=== PATIENT | female | born 1970 | race Caucasian/White ===

== ENCOUNTER 2017-06-10 08:49 | Emergency (ER) | payer OTHER ==
[~2017-06-10] VITALS: Ht 167.6 cm; Wt 99.2 kg
[2017-06-10 10:22] LABS: CHLORIDE 106 mEq/L (99-109); POTASSIUM 3.8 mEq/L (3.7-5.4); SODIUM 142 mEq/L (136-147)
[2017-06-10 10:24] LABS: GLUCOSE 97 mg/dL (70-99)
[2017-06-10 10:25] LABS: ANION GAP 12 MEQ/L (2-14)
[2017-06-10 10:27] LABS: SERUM ETHYL ALCOHOL 155 mg/dL
[2017-06-10 10:28] LABS: GFR ESTIMATE (CALCULATED) > 59 mL/min/
[2017-06-10 10:29] LABS: UREA NITROGEN (BUN) 8 mg/dL (9-23)
[2017-06-10 14:46] VITALS: BP 142/87
== END 2017-06-10 15:14 | disposition home or self-care (01) ==
LOC: EME 08:49
PROVIDERS: Emergency Medicine
DX: F10.129 Alcohol abuse with intoxication, unspecified (principal); Y90.6 Blood alcohol level of 120-199 mg/100 ml; J45.909 Unspecified asthma, uncomplicated; M32.9 Systemic lupus erythematosus, unspecified; F17.200 Nicotine dependence, unspecified, uncomplicated
CPT/HCPCS: 80048; 99281; 99285; G0480

== ENCOUNTER 2017-07-19 15:07 | Inpatient (IN) | payer OTHER ==
[~2017-07-19] VITALS: Ht 162.6 cm; Wt 99.8 kg
[2017-07-19 15:46] LABS: HEMATOCRIT 43.7 % (36.0-46.0); MCHC 35.2 G/DL (30.0-36.0); MCV 93.6 FL (83-99); MEAN PLAT.VOLUME 10.5 uM^3 (9.5-12.4); PLATELET COUNT 154 K/uL (156-360); RBC DIS.WIDTH-CV 12.6 % (11.8-14.6); RBC DIS.WIDTH-SD 43.7 % (39-53); RED BLOOD COUNT 4.67 M/uL (3.80-5.20); WHITE BLOOD COUNT 5.4 K/uL (4.1-10.2)
[2017-07-19 15:53] LABS: ADD MIUA? YES; BILIRUBIN SMALL; BLOOD SMALL; COLOR AMBER ((YELLOW)); GLUCOSE (STRIP) 50; KETONES NEGATIVE; LEUKOCYTES NEGATIVE; NITRITE NEGATIVE; PROTEIN (STRIP) 100; SPECIFIC GRAVITY 1.029 (1.000-1.030)
[2017-07-19 15:55] LABS: CHLORIDE 107 mEq/L (99-109); POTASSIUM 3.7 mEq/L (3.7-5.4); SODIUM 138 mEq/L (136-147)
[2017-07-19 15:57] LABS: GLUCOSE 140 mg/dL (70-99)
[2017-07-19 15:58] LABS: ANION GAP 9 MEQ/L (2-14)
[2017-07-19 15:59] LABS: TOTAL BILIRUBIN 0.7 mg/dL (0.0-1.0)
[2017-07-19 16:00] LABS: ALKALINE PHOSPHATASE 97 IU/L (3-129)
[2017-07-19 16:01] LABS: BACTERIA RARE /HPF; EPITHELIAL CELLS 1+ /HPF; MUCUS 1+ /LPF
[2017-07-19 16:01] LABS: GFR ESTIMATE (CALCULATED) > 59 mL/min/
[2017-07-19 16:02] LABS: UREA NITROGEN (BUN) 14 mg/dL (9-23)
[2017-07-19 16:04] LABS: CREATINE KINASE 145 IU/L (1-294)
[2017-07-19 16:07] LABS: TROP-I INTERPRETATION NEGATIVE; TROPONIN-I 0.02 ng/mL (0.0-0.30)
[2017-07-19 16:51] LABS: INTER. NORMALIZED RATIO 1.1
[2017-07-19 17:03] LABS: SERUM ETHYL ALCOHOL < 10 mg/dL
[2017-07-19 17:06] LABS: LIPASE 26 U/L (1.0-51.0)
[2017-07-19] MEDS ORDERED: ENDOCET 5-3251 EACH PO (19:13)
[2017-07-19] MEDS ORDERED: VYVANSE30 MG PO (19:14)
[2017-07-19] MEDS ORDERED: AMPHETAMINE SAL30 MG PO (19:15)
[2017-07-19] MEDS ORDERED: GABAPENTIN300 MG PO (19:15)
[2017-07-19] MEDS ORDERED: DOXEPIN HCL25 MG PO (19:16)
[2017-07-19] MEDS ORDERED: FLUOXETINE HCL40 MG PO (19:17)
[2017-07-19] MEDS ORDERED: BUPROPION XL300 MG PO (19:18)
[2017-07-19] MEDS ORDERED: LATUDA20 MG PO (19:20)
[2017-07-19] MEDS ORDERED: VENTOLIN HFA18 GM IH (19:21)
[2017-07-19] MEDS ORDERED: HYDROXYZINE PAM50 MG PO (19:22)
[2017-07-19] MEDS ORDERED: PRAZOSIN HCL1 MG PO (19:23)
[2017-07-19 20:24] LABS: QUANTITATIVE HCG < 4.0 MIU/ML
[2017-07-19 20:36] LABS: AMPHETAMINE NEGATIVE (500 ng/mL); BARBITURATES NEGATIVE (200 ng/mL); BENZODIAZEPINES PRESUMPTIVE POSITIVE (150 ng/mL); COCAINE PRESUMPTIVE POSITIVE (150 ng/mL); INTERNAL CONTROLS VALID? YES; METHADONE NEGATIVE (200 ng/mL); METHAMPHETAMINE NEGATIVE (500 ng/mL); OPIATES (MORPHINE) NEGATIVE (100 ng/mL); OXYCODONE NEGATIVE (100 ng/mL); PHENCYCLIDINE NEGATIVE (25 ng/mL); PROPOXYPHENE NEGATIVE (300 ng/mL); THC CANNABINOIDS NEGATIVE (50 ng/mL); TRICYCLIC ANTIDEPRESSANTS NEGATIVE (300 ng/mL)
[2017-07-19 20:37] LABS: ADD MEDTOX COMMENT Y
[2017-07-19 21:00] LABS: BENZODIAZEPINES QUANT VALUE 0 NG/ML; BENZODIAZEPINES, URINE SCREEN Negative (200 ng/mL)
[2017-07-19 22:15] LABS: TROP-I INTERPRETATION NEGATIVE; TROPONIN-I < 0.01 ng/mL (0.0-0.30)
[2017-07-20 01:36] VITALS: BP 114/64
[2017-07-20 05:09] VITALS: BP 127/67
[2017-07-20 05:36] LABS: HEMATOCRIT 41.4 % (36.0-46.0); MCH 32.2 PG (29.0-34.0); MCHC 33.3 G/DL (30.0-36.0); MCV 96.7 FL (83-99); MEAN PLAT.VOLUME 10.7 uM^3 (9.5-12.4); PLATELET COUNT 130 K/uL (156-360); RBC DIS.WIDTH-CV 13.2 % (11.8-14.6); RBC DIS.WIDTH-SD 46.7 % (39-53); RED BLOOD COUNT 4.28 M/uL (3.80-5.20); WHITE BLOOD COUNT 4.5 K/uL (4.1-10.2)
[2017-07-20 06:23] LABS: ALKALINE PHOSPHATASE 66 IU/L (3-129); ANION GAP ND MEQ/L (2-14); CHLORIDE 112 MEQ/L (99-109); POTASSIUM 3.8 MEQ/L (3.7-5.4); SAMPLE HEMOLYSIS CHECK 0; SAMPLE ICTERIC CHECK 0; SAMPLE LIPEMIA CHECK 0; SODIUM 143 MEQ/L (136-147); TOTAL BILIRUBIN 0.5 MG/DL (0.0-1.0); UREA NITROGEN (BUN) 9 mg/dL (9-23)
[2017-07-20 06:58] LABS: GLUCOSE 91 mg/dL (70-99)
[2017-07-20 07:53] LABS: GFR ESTIMATE (CALCULATED) > 59 mL/min/
[2017-07-20 08:00] VITALS: BP 98/68
[2017-07-20 10:54] LABS: SERUM ETHYL ALCOHOL < 10 mg/dL
[2017-07-20 11:42] VITALS: BP 120/77
[2017-07-20 11:50] LABS: HBSG INDEX 0.14
[2017-07-20 11:52] LABS: ANTI-HEPATITIS A VIRUS (IGM) Nonreactive
[2017-07-20 11:53] LABS: ANTI-HEPATITIS B CORE (IGM) Nonreactive; HBC IgM INDEX 0.09; HPCA INDEX 14.12
[2017-07-20 15:43] VITALS: BP 118/86
[2017-07-20 23:34] VITALS: BP 117/83
[2017-07-21 04:34] VITALS: BP 103/56
[2017-07-21 05:03] LABS: CHLORIDE 106 mEq/L (99-109); SODIUM 136 mEq/L (136-147)
[2017-07-21 05:05] LABS: GLUCOSE 99 mg/dL (70-99)
[2017-07-21 05:07] LABS: ANION GAP 5 MEQ/L (2-14)
[2017-07-21 05:08] LABS: POTASSIUM 4.6 mEq/L (3.7-5.4); TOTAL BILIRUBIN 0.3 mg/dL (0.0-1.0)
[2017-07-21 05:09] LABS: ALKALINE PHOSPHATASE 82 IU/L (3-129); GFR ESTIMATE (CALCULATED) > 59 mL/min/
[2017-07-21 05:10] LABS: UREA NITROGEN (BUN) 10 mg/dL (9-23)
[2017-07-21 05:11] LABS: DIRECT BILIRUBIN 0.2 mg/dL (0.0-0.3)
[2017-07-21 08:00] VITALS: BP 116/78
[2017-07-21 11:06] VITALS: BP 122/65
[2017-07-21 11:35] LABS: HIV INDEX 0.13; HIV-1/2 AB/AG COMBO Nonreactive
[2017-07-21 15:37] VITALS: BP 119/62
[2017-07-21 19:40] VITALS: BP 148/79
[2017-07-22 00:04] VITALS: BP 135/82
[2017-07-22 01:54] VITALS: BP 123/63
[2017-07-22 07:20] LABS: ALKALINE PHOSPHATASE 81 IU/L (3-129); ANION GAP 5 MEQ/L (2-14); CHLORIDE 102 MEQ/L (99-109); GFR ESTIMATE (CALCULATED) > 59 mL/min/; GLUCOSE 91 mg/dL (70-99); POTASSIUM 4.3 MEQ/L (3.7-5.4); SAMPLE HEMOLYSIS CHECK 0; SAMPLE ICTERIC CHECK 0; SAMPLE LIPEMIA CHECK 0; SODIUM 135 MEQ/L (136-147); UREA NITROGEN (BUN) 8 mg/dL (9-23)
[2017-07-22 07:26] VITALS: BP 116/66
[2017-07-22 07:28] LABS: TOTAL BILIRUBIN 0.3 MG/DL (0.0-1.0)
[2017-07-22] MEDS ORDERED: CIPRO500 MG PO (10:38)
[2017-07-24 12:08] LABS: HCV RNA (LOG IU/mL) 3.75 (<1.18)
== END 2017-07-22 11:45 | disposition home or self-care (01) | DRG 312 ==
LOC: EME 15:07 → 5SOUTH 19:05 → EDOF 19:05 → 4EAST 19:05 → ENRESERV 19:05 → 4EAST 07-20 01:24 → ENRESERV 07-22 00:03 → 5SOUTH 07-22 01:40
PROVIDERS: Hospitalist; Internal Medicine; Internal Medicine Gastroenterology; Physician Assistant Medical
DX: R55 Syncope and collapse (principal); N39.0 Urinary tract infection, site not specified; E86.0 Dehydration; R16.0 Hepatomegaly, not elsewhere classified; F14.10 Cocaine abuse, uncomplicated; F19.10 Other psychoactive substance abuse, uncomplicated; B19.20 Unspecified viral hepatitis C without hepatic coma; F41.9 Anxiety disorder, unspecified; F32.9 Major depressive disorder, single episode, unspecified; F10.21 Alcohol dependence, in remission; M17.10 Unilateral primary osteoarthritis, unspecified knee; G89.4 Chronic pain syndrome; M79.7 Fibromyalgia; I51.7 Cardiomegaly; E66.9 Obesity, unspecified; J45.909 Unspecified asthma, uncomplicated; F17.200 Nicotine dependence, unspecified, uncomplicated; W18.30XA Fall on same level, unspecified, initial encounter; Y93.01 Activity, walking, marching and hiking; Z81.8 Family history of other mental and behavioral disorders; Z68.39 Body mass index [BMI] 39.0-39.9, adult; Y92.410 Unspecified street and highway as the place of occurrence of the external cause; Z91.19 Patient's noncompliance with other medical treatment and regimen; R94.31 Abnormal electrocardiogram [ECG] [EKG]
CPT/HCPCS: 70450; 71010; 73564; 76705; 80048; 80053; 80074; 80076; 81003; 82140; 82550; 83690; 84484; 84702; 84999; 85027; 85610; 85651; 86703; 87077; 87086; 87186; 87522 90; 87902 90; 90686; 93005; 93306; 99202; 99281; 99285; G0480; J1650; J2405; J7030; S0028

== ENCOUNTER 2017-08-13 21:37 | Observation (INO) | payer OTHER ==
[~2017-08-13] VITALS: Ht 165.1 cm; Wt 93.3 kg
[~2017-08-13 21:37] MED LIST: AMPHETAMINE SAL30 MG PO; BUPROPION XL300 MG PO; CIPRO500 MG PO; DOXEPIN HCL25 MG PO; ENDOCET 5-3251 EACH PO; FLUOXETINE HCL40 MG PO; GABAPENTIN300 MG PO; HYDROXYZINE PAM50 MG PO; LATUDA20 MG PO; PRAZOSIN HCL1 MG PO; VENTOLIN HFA18 GM IH; VYVANSE30 MG PO
[2017-08-13 22:15] LABS: HEMATOCRIT 46.8 % (36.0-46.0); HEMOGLOBIN 16.1 G/DL (11.9-15.5); MCH 32.4 PG (29.0-34.0); MCHC 34.4 G/DL (30.0-36.0); MCV 94.2 FL (83-99); PLATELET COUNT 259 K/uL (156-360); RBC DIS.WIDTH-SD 44.4 % (39-53); RED BLOOD COUNT 4.97 M/uL (3.80-5.20); WHITE BLOOD COUNT 7.6 K/uL (4.1-10.2)
[2017-08-13 22:22] LABS: CHLORIDE 105 mEq/L (99-109); POTASSIUM 3.6 mEq/L (3.7-5.4); SODIUM 138 mEq/L (136-147)
[2017-08-13 22:25] LABS: GLUCOSE 110 mg/dL (70-99); TOTAL PROTEIN 7.9 g/dL (6.4-8.3)
[2017-08-13 22:27] LABS: TOTAL BILIRUBIN 0.3 mg/dL (0.0-1.0)
[2017-08-13 22:28] LABS: ALKALINE PHOSPHATASE 72 IU/L (3-129); CREATININE 0.8 mg/dL (0.6-1.3); GFR ESTIMATE (CALCULATED) > 59 mL/min/; SERUM ETHYL ALCOHOL 145 mg/dL
[2017-08-13 22:30] LABS: AST (GOT) 42 IU/L (2-34); UREA NITROGEN (BUN) 8 mg/dL (9-23)
[2017-08-13 22:31] LABS: ALT (GPT) 58 IU/L (3-49)
[2017-08-14] VITALS (7 sets, daily range): BP systolic 109–148; BP diastolic 62–89
[2017-08-14] MEDS ORDERED: CLARITIN10 M3 PO (08:50)
[2017-08-14 10:49] LABS: HEPATITIS B SURFACE ANTIGEN Nonreactive
[2017-08-14 10:50] LABS: HEPATITIS B SURFACE ANTIBODY Nonreactive
[2017-08-14 10:51] LABS: ANTI-HEPATITIS A VIRUS (IGM) Nonreactive
[2017-08-14 10:52] LABS: ANTI-HEPATITIS B CORE (IGM) Nonreactive
[2017-08-14 11:23] LABS: HEPATITIS C ANTIBODY REACTIVE
[2017-08-14 14:04] LABS: ALBUMIN 3.9 G/DL (3.2-4.8); ALKALINE PHOSPHATASE 64 IU/L (3-129); ALT (GPT) 48 IU/L (3-49); AST (GOT) 35 IU/L (2-34); DIRECT BILIRUBIN 0.1 mg/dL (0.0-0.3); TOTAL BILIRUBIN 0.4 MG/DL (0.0-1.0); TOTAL PROTEIN 6.7 G/DL (6.4-8.3)
[2017-08-15 00:40] VITALS: BP 121/60
[2017-08-15 03:04] VITALS: BP 143/63
[2017-08-15 06:25] LABS: CHLORIDE 105 MEQ/L (99-109); CREATININE 0.6 MG/DL (0.6-1.3); GFR ESTIMATE (CALCULATED) > 59 mL/min/; SODIUM 138 MEQ/L (136-147); UREA NITROGEN (BUN) 10 mg/dL (9-23)
[2017-08-15 06:26] LABS: GLUCOSE 77 mg/dL (70-99); POTASSIUM 4.4 MEQ/L (3.7-5.4)
[2017-08-15 06:28] LABS: HEMATOCRIT 40.8 % (36.0-46.0); MCH 31.7 PG (29.0-34.0); MCHC 32.8 G/DL (30.0-36.0); MCV 96.5 FL (83-99); RBC DIS.WIDTH-CV 12.7 % (11.8-14.6); RBC DIS.WIDTH-SD 45.1 % (39-53); RED BLOOD COUNT 4.23 M/uL (3.80-5.20)
[2017-08-15 06:31] LABS: HEMOGLOBIN 13.4 G/DL (11.9-15.5)
[2017-08-15 07:11] LABS: PLAT.SUFFICIENCY ADEQUATE
[2017-08-15 07:12] LABS: PLATELET COUNT 171 K/uL (156-360)
[2017-08-15 07:58] VITALS: BP 123/75
[2017-08-15] MEDS ORDERED: NICOTINE PATCH1 EAC1 TD (09:52)
== END 2017-08-15 10:55 | disposition home or self-care (01) ==
LOC: EME 21:37 → EDOF 08-14 02:30 → 5EAST 08-14 02:30 → ENRESERV 08-14 02:33 → 5EAST 08-14 03:52 → ENPENDDIS 08-15 → 5EAST 08-15 10:55
PROVIDERS: Emergency Medicine; Hospitalist
DX: T40.1X1A Poisoning by heroin, accidental (unintentional), initial encounter (principal); R74.0 Nonspecific elevation of levels of transaminase and lactic acid dehydrogenase [LDH]; S00.83XA Contusion of other part of head, initial encounter; F32.9 Major depressive disorder, single episode, unspecified; F10.10 Alcohol abuse, uncomplicated; Y90.6 Blood alcohol level of 120-199 mg/100 ml; F11.10 Opioid abuse, uncomplicated; F14.10 Cocaine abuse, uncomplicated; F17.200 Nicotine dependence, unspecified, uncomplicated; Z81.1 Family history of alcohol abuse and dependence
CPT/HCPCS: 70450; 70486; 80048; 80053; 80074; 80076; 85027; 86706; 93005; 94640; 99281; 99285; G0378; G0480; J1650; J2060; J2310; J2405; J7030

== ENCOUNTER 2017-11-30 01:18 | Emergency (ER) | payer OTHER ==
[~2017-11-30] VITALS: Ht 170.2 cm; Wt 88.3 kg
[~2017-11-30 01:18] MED LIST changes: +CLARITIN10 M3 PO; +NICOTINE PATCH1 EAC1 TD
[2017-11-30 01:53] LABS: HEMATOCRIT 41.9 % (36.0-46.0); HEMOGLOBIN 14.5 G/DL (11.9-15.5); MCH 32.6 PG (29.0-34.0); MCHC 34.6 G/DL (30.0-36.0); MCV 94.2 FL (83-99); PLATELET COUNT 261 K/uL (156-360); RBC DIS.WIDTH-CV 13.1 % (11.8-14.6); RED BLOOD COUNT 4.45 M/uL (3.80-5.20)
[2017-11-30 01:58] LABS: AMPHETAMINE NEGATIVE (500 ng/mL); BARBITURATES NEGATIVE (200 ng/mL); BENZODIAZEPINES PRESUMPTIVE POSITIVE (150 ng/mL); BUPRENORPHINE NEGATIVE (10 ng/mL); COCAINE PRESUMPTIVE POSITIVE (150 ng/mL); METHADONE NEGATIVE (200 ng/mL); METHAMPHETAMINE NEGATIVE (500 ng/mL); OPIATES (MORPHINE) NEGATIVE (100 ng/mL); OXYCODONE NEGATIVE (100 ng/mL); PHENCYCLIDINE NEGATIVE (25 ng/mL); PROPOXYPHENE NEGATIVE (300 ng/mL); THC CANNABINOIDS NEGATIVE (50 ng/mL); TRICYCLIC ANTIDEPRESSANTS PRESUMPTIVE POSITIVE (300 ng/mL)
[2017-11-30 02:02] LABS: CHLORIDE 105 mEq/L (99-109); POTASSIUM 3.5 mEq/L (3.7-5.4); SODIUM 144 mEq/L (136-147)
[2017-11-30 02:07] LABS: ALBUMIN 4.2 g/dL (3.2-4.8)
[2017-11-30 02:09] LABS: GLUCOSE 102 mg/dL (70-99); TOTAL PROTEIN 7.2 g/dL (6.4-8.3)
[2017-11-30 02:11] LABS: TOTAL BILIRUBIN 0.5 mg/dL (0.0-1.0)
[2017-11-30 02:12] LABS: SERUM ETHYL ALCOHOL 188 mg/dL
[2017-11-30 02:13] LABS: ALKALINE PHOSPHATASE 67 IU/L (3-129); CREATININE 0.8 mg/dL (0.6-1.3); GFR ESTIMATE (CALCULATED) > 59 mL/min/
[2017-11-30 02:14] LABS: UREA NITROGEN (BUN) 8 mg/dL (9-23)
[2017-11-30 02:15] LABS: AST (GOT) 49 IU/L (2-34); QUANTITATIVE HCG < 4.0 MIU/ML
[2017-11-30 02:16] LABS: ALT (GPT) 64 IU/L (3-49); TROP-I INTERPRETATION NEGATIVE; TROPONIN-I < 0.01 ng/mL (0.0-0.30)
[2017-11-30 02:34] VITALS: BP 96/57
[2017-11-30 05:16] LABS: BENZODIAZEPINES, URINE SCREEN Negative (200 ng/mL)
== END 2017-11-30 02:41 ==
LOC: EME → EDBD 01:18 → EME 01:18
PROVIDERS: Emergency Medicine
DX: F10.129 Alcohol abuse with intoxication, unspecified (principal); Y90.6 Blood alcohol level of 120-199 mg/100 ml; F14.10 Cocaine abuse, uncomplicated; J45.909 Unspecified asthma, uncomplicated; M32.9 Systemic lupus erythematosus, unspecified; F17.200 Nicotine dependence, unspecified, uncomplicated
CPT/HCPCS: 80053; 84484; 84702; 84999; 85027; 93005; 99281; 99283; G0480

== ENCOUNTER 2017-12-21 18:49 | Emergency (ER) | payer OTHER ==
[~2017-12-21] VITALS: Ht 167.6 cm; Wt 90.8 kg
[2017-12-21 19:53] LABS: AMPHETAMINE NEGATIVE (500 ng/mL); COCAINE NEGATIVE (150 ng/mL); METHAMPHETAMINE NEGATIVE (500 ng/mL); OPIATES (MORPHINE) PRESUMPTIVE POSITIVE (100 ng/mL); PHENCYCLIDINE NEGATIVE (25 ng/mL); THC CANNABINOIDS NEGATIVE (50 ng/mL)
[2017-12-21 19:54] LABS: BARBITURATES NEGATIVE (200 ng/mL); BENZODIAZEPINES PRESUMPTIVE POSITIVE (150 ng/mL); BUPRENORPHINE NEGATIVE (10 ng/mL); METHADONE NEGATIVE (200 ng/mL); OXYCODONE PRESUMPTIVE POSITIVE (100 ng/mL); PROPOXYPHENE NEGATIVE (300 ng/mL); TRICYCLIC ANTIDEPRESSANTS NEGATIVE (300 ng/mL)
[2017-12-21] MEDS ORDERED: NARCAN4 MG NS (20:02)
[2017-12-21 20:20] VITALS: BP 104/62
[2017-12-21 20:26] LABS: BENZODIAZEPINES, URINE SCREEN Negative (200 ng/mL)
== END 2017-12-21 20:21 | disposition home or self-care (01) ==
LOC: EME 18:49
PROVIDERS: Emergency Medicine
DX: T40.2X1A Poisoning by other opioids, accidental (unintentional), initial encounter (principal); T42.4X1A Poisoning by benzodiazepines, accidental (unintentional), initial encounter; M32.9 Systemic lupus erythematosus, unspecified; F31.9 Bipolar disorder, unspecified; F17.200 Nicotine dependence, unspecified, uncomplicated; Z86.69 Personal history of other diseases of the nervous system and sense organs
CPT/HCPCS: 84999; 99281; 99284

== ENCOUNTER 2018-02-16 20:45 | Emergency (ER) | payer OTHER ==
[~2018-02-16] VITALS: Ht 162.6 cm; Wt 79.8 kg
[~2018-02-16 20:45] MED LIST changes: +NARCAN4 MG NS
[2018-02-17 06:30] VITALS: BP 110/76
== END 2018-02-17 01:55 | disposition home or self-care (01) ==
LOC: EME 20:45
DX: F10.129 Alcohol abuse with intoxication, unspecified (principal); M32.9 Systemic lupus erythematosus, unspecified; F17.200 Nicotine dependence, unspecified, uncomplicated
CPT/HCPCS: 99281; 99283

== ENCOUNTER 2018-02-21 18:30 | Emergency (ER) | payer OTHER ==
[~2018-02-21] VITALS: Ht 162.6 cm; Wt 81.8 kg
[2018-02-21 18:47] VITALS: BP 136/91
[2018-02-21 19:30] LABS: HEMATOCRIT 42.3 % (36.0-46.0); HEMOGLOBIN 14.9 G/DL (11.9-15.5); MCH 33.3 PG (29.0-34.0); MCHC 35.2 G/DL (30.0-36.0); MCV 94.4 FL (83-99); PLATELET COUNT 231 K/uL (156-360); RBC DIS.WIDTH-CV 12.7 % (11.8-14.6); RBC DIS.WIDTH-SD 44.2 % (39-53); RED BLOOD COUNT 4.48 M/uL (3.80-5.20); WHITE BLOOD COUNT 9.8 K/uL (4.1-10.2)
[2018-02-21 19:40] LABS: CHLORIDE 101 mEq/L (99-109); SODIUM 141 mEq/L (136-147)
[2018-02-21 19:42] LABS: GLUCOSE 103 mg/dL (70-99)
[2018-02-21 19:45] LABS: SERUM ETHYL ALCOHOL < 10 mg/dL
[2018-02-21 19:46] LABS: CREATININE 0.9 mg/dL (0.6-1.3); GFR ESTIMATE (CALCULATED) > 59 mL/min/
[2018-02-21 19:48] LABS: UREA NITROGEN (BUN) 16 mg/dL (9-23)
[2018-02-21 19:49] LABS: ACETAMINOPHEN (TYLENOL) < 10 mcg/mL (10-30); SALICYLATE < 5.0 MG/DL (15-30)
[2018-02-21 19:56] LABS: QUANTITATIVE HCG < 4.0 MIU/ML
== END 2018-02-21 21:17 | disposition left against medical advice (07) ==
LOC: EME 18:30
DX: R11.2 Nausea with vomiting, unspecified (principal); R53.1 Weakness; Z53.21 Procedure and treatment not carried out due to patient leaving prior to being seen by health care provider
CPT/HCPCS: 80048; 81003; 84702; 85027; G0480

== ENCOUNTER 2018-02-24 21:24 | Emergency (ER) | payer OTHER ==
[~2018-02-24] VITALS: Ht 162.6 cm; Wt 84.1 kg
[2018-02-24 23:20] LABS: ALBUMIN 3.9 g/dL (3.2-4.8); CHLORIDE 110 mEq/L (99-109); POTASSIUM 3.9 mEq/L (3.7-5.4); SODIUM 146 mEq/L (136-147)
[2018-02-24 23:22] LABS: GLUCOSE 105 mg/dL (70-99)
[2018-02-24 23:23] LABS: TOTAL PROTEIN 6.5 g/dL (6.4-8.3)
[2018-02-24 23:24] LABS: TOTAL BILIRUBIN 0.2 mg/dL (0.0-1.0)
[2018-02-24 23:25] LABS: SERUM ETHYL ALCOHOL 257 mg/dL
[2018-02-24 23:26] LABS: ALKALINE PHOSPHATASE 59 IU/L (3-129); CREATININE 0.7 mg/dL (0.6-1.3); GFR ESTIMATE (CALCULATED) > 59 mL/min/
[2018-02-24 23:27] LABS: AST (GOT) 32 IU/L (2-34); UREA NITROGEN (BUN) 10 mg/dL (9-23)
[2018-02-24 23:28] LABS: DIRECT BILIRUBIN 0.1 mg/dL (0.0-0.3)
[2018-02-24 23:29] LABS: ACETAMINOPHEN (TYLENOL) < 10 mcg/mL (10-30); ALT (GPT) 37 IU/L (3-49)
[2018-02-25 00:15] LABS: SALICYLATE < 1.0 MG/DL (15-30)
[2018-02-25 00:42] LABS: HEMATOCRIT 37.5 % (36.0-46.0); HEMOGLOBIN 13.3 G/DL (11.9-15.5); MCH 32.9 PG (29.0-34.0); MCHC 35.5 G/DL (30.0-36.0); MCV 92.8 FL (83-99); PLATELET COUNT 226 K/uL (156-360); RBC DIS.WIDTH-CV 12.5 % (11.8-14.6); RBC DIS.WIDTH-SD 42.8 % (39-53); RED BLOOD COUNT 4.04 M/uL (3.80-5.20); WHITE BLOOD COUNT 5.5 K/uL (4.1-10.2)
[2018-02-25 00:43] LABS: IMM.PLATELET FRACTION 2.7 (1-7)
[2018-02-25 01:06] LABS: CREATINE KINASE 96 IU/L (1-294)
[2018-02-25 07:40] VITALS: BP 174/89
== END 2018-02-25 07:50 | disposition home or self-care (01) ==
LOC: EME 21:24
PROVIDERS: Physician Assistant
DX: F10.129 Alcohol abuse with intoxication, unspecified (principal); Y90.8 Blood alcohol level of 240 mg/100 ml or more; F32.9 Major depressive disorder, single episode, unspecified; Z59.0 Homelessness; M32.9 Systemic lupus erythematosus, unspecified; F31.9 Bipolar disorder, unspecified; R56.9 Unspecified convulsions; F17.200 Nicotine dependence, unspecified, uncomplicated
CPT/HCPCS: 80048; 80076; 81003; 82550; 85027; 90839; 99281; 99285; G0480; J1200; J7030

== ENCOUNTER 2018-02-26 20:15 | Emergency (ER) | payer OTHER ==
[~2018-02-26] VITALS: Ht 162.6 cm; Wt 53.7 kg
[2018-02-26 21:29] LABS: SERUM ETHYL ALCOHOL 349 mg/dL
[2018-02-26 21:51] LABS: ALBUMIN 3.7 g/dL (3.2-4.8)
[2018-02-26 21:53] LABS: TOTAL PROTEIN 7.2 g/dL (6.4-8.3)
[2018-02-26 22:10] LABS: BASOPHIL (%) 0.3 % (0-1); EOSINOPHIL (%) 0.4 % (0-5); HEMATOCRIT 37.7 % (36.0-46.0); HEMOGLOBIN 13.3 G/DL (11.9-15.5); IMMATURE GRANULOCYTE (%) 0.3 % (0.0-0.7); LYMPHOCYTE (%) 39.9 % (15-42); LYMPHOCYTE COUNT 2.8 K/uL (1.0-2.8); MCH 32.8 PG (29.0-34.0); MCHC 35.3 G/DL (30.0-36.0); MCV 92.9 FL (83-99); MONOCYTE (%) 5.5 % (3-12); MONOCYTE COUNT 0.4 K/uL (0-0.8); NEUTROPHIL (%) 53.6 % (45-76); NEUTROPHIL COUNT 3.7 K/uL (1.8-6.4); PLATELET COUNT 250 K/uL (156-360); RBC DIS.WIDTH-CV 12.7 % (11.8-14.6); RBC DIS.WIDTH-SD 43.2 % (39-53); RED BLOOD COUNT 4.06 M/uL (3.80-5.20); WHITE BLOOD COUNT 6.9 K/uL (4.1-10.2)
[2018-02-26 22:23] LABS: CHLORIDE 107 mEq/L (99-109); POTASSIUM 3.3 mEq/L (3.7-5.4); SODIUM 143 mEq/L (136-147)
[2018-02-26 22:25] LABS: GLUCOSE 103 mg/dL (70-99)
[2018-02-26 22:29] LABS: ALKALINE PHOSPHATASE 64 IU/L (3-129); CREATININE 0.7 mg/dL (0.6-1.3); GFR ESTIMATE (CALCULATED) > 59 mL/min/
[2018-02-26 22:30] LABS: UREA NITROGEN (BUN) 10 mg/dL (9-23)
[2018-02-26 22:31] LABS: AST (GOT) 28 IU/L (2-34); DIRECT BILIRUBIN 0.1 mg/dL (0.0-0.3)
[2018-02-26 22:32] LABS: ALT (GPT) 33 IU/L (3-49); LIPASE 17 U/L (1.0-51.0); TOTAL BILIRUBIN 0.3 mg/dL (0.0-1.0)
[2018-02-26 22:38] LABS: PTT 29.1 SEC (25-37)
[2018-02-27 05:18] VITALS: BP 121/67
== END 2018-02-27 05:18 | disposition home or self-care (01) ==
LOC: EME 20:15
PROVIDERS: Emergency Medicine
DX: F10.129 Alcohol abuse with intoxication, unspecified (principal); F19.10 Other psychoactive substance abuse, uncomplicated; J45.909 Unspecified asthma, uncomplicated; F17.200 Nicotine dependence, unspecified, uncomplicated; Y90.8 Blood alcohol level of 240 mg/100 ml or more
CPT/HCPCS: 80048 91; 80053; 80076; 83690; 85025; 85610; 85730; 99281; 99284; G0480